=== PATIENT | male | born 1990 | race African-American/Black ===

== ENCOUNTER 2025-06-29 14:04 | Emergency (ER) | payer OTHER ==
[~2025-06-29] VITALS: Ht 185.4 cm; Wt 86.0 kg
[~2025-06-29 14:04] MED LIST: CLIN1CAP70 PO; IBUP-1456 PO
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
[2025-06-29] MEDS ORDERED: METH-1182 PO (14:53)
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
[2025-06-29 15:06] VITALS: BP 142/95; PULSE 72; RESP 16; TEMP 98.2; O2SAT 100
== END 2025-06-29 15:07 | disposition home or self-care (01) ==
LOC: ER 14:04
DX: S39.012A Strain of muscle, fascia and tendon of lower back, initial encounter (principal); S63.91XA Sprain of unspecified part of right wrist and hand, initial encounter; F17.210 Nicotine dependence, cigarettes, uncomplicated; Z88.0 Allergy status to penicillin; Y04.0XXA Assault by unarmed brawl or fight, initial encounter; Y93.89 Activity, other specified; Y92.89 Other specified places as the place of occurrence of the external cause; Y99.8 Other external cause status
CPT/HCPCS: 72100; 73130